=== PATIENT | male | born 1945 | race Caucasian/White ===

== ENCOUNTER 2019-01-26 18:56 | Emergency (ER) | payer MEDICARE, BC ==
[2019-01-26] MEDS ORDERED: Ondansetron 4 MG/2 ML SDV IVPUSH ONE (19:02)
[2019-01-26] MEDS ORDERED: Ondansetron 4 MG/2 ML SDV ONE (19:03)
[2019-01-26] MEDS ORDERED: Sodium Chloride 0.9% 1,000 ML IV ONE (19:05)
[2019-01-26] MEDS ORDERED: HYDROmorphone 1 MG/ML Syringe ONE (19:20)
[2019-01-26] MEDS ORDERED: fentaNYL 100 MCG/2 ML SDV ONE ×2 (19:22→19:43)
--- NOTE | 2019-01-26 19:40 | EDM.PDOC ---
ED HPI GENERAL MEDICAL PROBLEM - General Stated Complaint: MEDICAL VIA [facility] Time Seen by Provider: 01/26/19 19:00 Source of Information: Reports: Patient, EMS, Family History Limitations: Reports: No Limitations - History of Present Illness INITIAL COMMENTS - FREE TEXT/NARRATIVE: 73-year-old male was standing in line at a local movie theater when he developed a very significant abdominal pain causing him to become weak and nauseous. He tried to sit down but then collapsed, became very diaphoretic and pale and the pain persisted. EMS was called, found him to be hypotensive and pale but in a normal sinus rhythm. He has a history of an [place] in the past with stents. He is still having right abdominal pain, a headache, and nausea. He had a large emesis after coming in. Onset: Sudden Duration: Hour(s): (Symptoms started 1 hour ago) Location: Reports: Abdomen Associated Symptoms: Reports: Diaphoresis, Malaise, Nausea/Vomiting, Weakness, Other (Headache) - Related Data Allergies Allergy/AdvReac Type Severity Reaction Status Date / Time No Known Allergies Allergy Verified 01/26/19 20:15 ED ROS GENERAL - Review of Systems Review Of Systems: See Below Constitutional: Reports: Chills, Malaise. Denies: Fever HEENT: Reports: No Symptoms Respiratory: Denies: Shortness of Breath, Cough Cardiovascular: Denies: Chest Pain GI/Abdominal: Reports: Abdominal Pain, Nausea, Vomiting. Denies: Constipation, Diarrhea Skin: Reports: Pallor, Diaphoresis Psychiatric: Reports: No Symptoms ED EXAM, GENERAL - Physical Exam Exam: See Below Exam Limited By: No Limitations General Appearance: Alert, Moderate Distress Eye Exam: Bilateral Eye: Normal Inspection Respiratory/Chest: No Respiratory Distress, Lungs Clear Cardiovascular: Regular Rate, Rhythm GI/Abdominal: Other (Tenderness to palpation of the abdomen, especially on the right side) Extremities: Other (No edema, pale and significantly diaphoretic. He has a weak dorsalis pedis pulse on the left, none on the right) Neurological: Alert, Oriented, Other (Extremely weak) Skin Exam: Cool Course - Vital Signs Last Recorded V/S: Last Vital Signs Temp 95.8 F 01/26/19 20:18 Pulse 55 L 01/26/19 20:18 Resp 12 01/26/19 20:18 BP 87/63 L 09/19/19 20:18 Pulse Ox 94 L 01/26/19 20:18 - Orders/Labs/Meds Orders: Active Orders 24 hr Category Date Time Status PATIENT RETYPE [BBK] Stat Lab 01/26/19 19:20 Results RED BLOOD CELLS LP [BBK] Stat Lab 01/26/19 19:20 Results TYPE AND SCREEN [BBK] Stat Lab 01/26/19 19:20 Results Labs: Laboratory Tests 01/26/19 01/26/19 01/26/19 Range/Units 19:06 19:19 19:20 WBC 9.6 (4.5-11.0) K/uL RBC 4.63 (4.30-5.90) M/uL Hgb 14.1 (12.0-15.0) g/dL Hct 43.7 (40.0-54.0) % MCV 94 (80-98) fL MCH 31 (27-31) pg MCHC 32 (32-36) % Plt Count 323 (150-400) K/uL Neut % (Auto) 43 (36-66) % Lymph % (Auto) 40 (24-44) % [place] % (Auto) 12 H (2-6) % Eos % (Auto) 4 (2-4) % Baso % (Auto) 0 (0-1) % Sodium 142 (140-148) mmol/L Potassium 3.8 (3.6-5.2) mmol/L Chloride 106 (100-108) mmol/L Carbon Dioxide 24 (21-32) mmol/L Anion Gap 12.2 (5.0-14.0) mmol/L BUN 21 H (7-18) mg/dL Creatinine 1.5 H (0.8-1.3) mg/dL Est Cr Clr Drug Dosing 51.05 mL/min Estimated GFR (MDRD) 46 L (>60) Glucose 183 H (74-106) mg/dL Calcium 9.3 (8.5-10.1) mg/dL Total Bilirubin 0.3 (0.2-1.0) mg/dL AST 22 (15-37) U/L ALT 39 (12-78) U/L Alkaline Phosphatase 92 (46-116) U/L Total Protein 7.1 (6.4-8.2) g/dL Albumin 3.6 (3.4-5.0) g/dL Globulin 3.5 (2.3-3.5) g/dL Albumin/Globulin Ratio 1.0 L (1.2-2.2) Blood Type Cancelled Gel Antibody Screen Cancelled Crossmatch See Detail 01/26/19 Range/Units 19:20 WBC (4.5-11.0) K/uL RBC (4.30-5.90) M/uL Hgb (12.0-15.0) g/dL Hct (40.0-54.0) % MCV (80-98) fL MCH (27-31) pg MCHC (32-36) % Plt Count (150-400) K/uL Neut % (Auto) (36-66) % Lymph % (Auto) (24-44) % [place] % (Auto) (2-6) % Eos % (Auto) (2-4) % Baso % (Auto) (0-1) % Sodium (140-148) mmol/L Potassium (3.6-5.2) mmol/L Chloride (100-108) mmol/L Carbon Dioxide (21-32) mmol/L Anion Gap (5.0-14.0) mmol/L BUN (7-18) mg/dL Creatinine (0.8-1.3) mg/dL Est Cr Clr Drug Dosing mL/min Estimated GFR (MDRD) (>60) Glucose (74-106) mg/dL Calcium (8.5-10.1) mg/dL Total Bilirubin (0.2-1.0) mg/dL AST (15-37) U/L ALT (12-78) U/L Alkaline Phosphatase (46-116) U/L Total Protein (6.4-8.2) g/dL Albumin (3.4-5.0) g/dL Globulin (2.3-3.5) g/dL Albumin/Globulin Ratio (1.2-2.2) Blood Type O POSITIVE Gel Antibody Screen Negative Crossmatch See Detail Meds: Medications Discontinued Medications Generic Name Dose Route Start Last Admin Trade Name Vamshi PRN Reason Stop Dose Admin Fentanyl Confirm 01/26/19 19:22 01/26/19 21:23 Sublimaze Administered 01/26/19 19:23 Not Given Dose 100 mcg .ROUTE .STK-MED ONE Fentanyl Confirm 01/26/19 19:43 01/26/19 21:23 Sublimaze Administered 01/26/19 19:44 Not Given Dose 100 mcg .ROUTE .STK-MED ONE Fentanyl 75 mcg 01/26/19 21:24 01/26/19 19:22 Sublimaze IVPUSH 01/26/19 21:25 75 mcg ONETIME ONE Administration Fentanyl 75 mcg 01/26/19 21:25 01/26/19 19:42 Sublimaze IVPUSH 01/26/19 21:26 75 mcg ONETIME ONE Administration Hydromorphone HCl Confirm 01/26/19 19:20 01/26/19 21:23 Dilaudid Administered 01/26/19 19:21 Not Given Dose 1 mg .ROUTE .STK-MED ONE Sodium Chloride 1,000 mls @ 999 mls/hr 01/26/19 19:05 01/26/19 21:24 Normal Saline IV 01/26/19 20:05 999 mls/hr ONETIME ONE Administration Ondansetron HCl 4 mg 01/26/19 19:02 01/26/19 21:21 Zofran IVPUSH 01/26/19 19:03 4 mg ONETIME ONE Administration Ondansetron HCl Confirm 01/26/19 19:03 01/26/19 21:23 Zofran Administered 01/26/19 19:04 Not Given Dose 4 mg .ROUTE .STK-MED ONE - Re-Assessments/Exams Free Text/Narrative Re-Assessment/Exam: 01/26/19 19:39 2 IVs were started, patient was put on cardiac monitoring and remained in a sinus bradycardia. He had a very large emesis. 4 mg of IV Zofran and 75 g of fentanyl were given for pain. An ultrasound was performed over the abdomen and revealed a large aorta with a layered border indicating a possible dissection. Urgent transfer for presumptive dissecting aortic aneurysm likely into the right iliac area. CBC returned normal, 1 unit of O- blood however was hung to be run during transfer. Urgent consultation with [facility] was done and he was accepted by Dr. Inman, emergency room. Patient was given an additional 75 g of fentanyl for pain. I'll discharge his systolic blood pressure was 84, he was still oriented but still very pale and diaphoretic. His pain had improved. 01/26/19 21:50 Critical care was provided for 60 minutes Departure - Departure Time of Disposition: 23:08 Disposition: DC/Tfer to Other 70 Clinical Impression: Dissecting aortic aneurysm - Discharge Information Referrals: PCP,None [Primary Care Provider] - Forms: ED Department Discharge Care Plan Goals: Urgent transfer to [facility] for further evaluation and possible vascular surgery was arranged. Critical Care Note - Critical Care Note Total Time (mins): 60 - My Orders Last 24 Hours: My Active Orders 01/26/19 19:20 PATIENT RETYPE [BBK] Stat RED BLOOD CELLS LP [BBK] Stat TYPE AND SCREEN [BBK] Stat - Assessment/Plan Last 24 Hours: My Active Orders 01/26/19 19:20 PATIENT RETYPE [BBK] Stat RED BLOOD CELLS LP [BBK] Stat TYPE AND SCREEN [BBK] Stat
[2019-01-26] MEDS ORDERED: HYDROmorphone 1 MG/ML Syringe IM ONE (19:46)
[2019-01-26] MEDS ORDERED: fentaNYL 100 MCG/2 ML SDV IVPUSH ONE ×2 (21:24→21:25)
== END 2019-01-26 22:00 | disposition other institution (70) ==
LOC: JP.ED 18:56
DX: I71.02 Dissection of abdominal aorta (principal)
CPT/HCPCS: 36415; 36430; 80053; 85025; 86850; 86900; 86901; 86920; 86922; 96361; 96374; 96375; 99285; J2405; J3010; J7030; P9016; 99291

== ENCOUNTER 2019-02-01 10:06 | Emergency (ER) | payer MEDICARE, BC ==
[2019-02-01] MEDS ORDERED: LORazepam 1 MG Tab PO ONE (11:12)
--- NOTE | 2019-02-01 12:00 | EDM.PDOC ---
ED HPI GENERAL MEDICAL PROBLEM - General Chief Complaint: Cardiovascular Problem Stated Complaint: headache high blood pressure Time Seen by Provider: 02/01/19 11:15 Source of Information: Reports: Patient, Family History Limitations: Reports: No Limitations - History of Present Illness INITIAL COMMENTS - FREE TEXT/NARRATIVE: 73 yo hx of HTN, recent ruptured AAA repaired (just discharged from [facility] yesterday) presents concerns of hypertension. Has history of this. Just restarted all of his PO meds yesterday prior to discharge. Has some non-bloody diarrhea overnight. Was up to the toilet frequently and checked BP during this time, multiple readings of systolics mid 100s but some in 170s and up to 190. Has become quite anxious about this. Took an extra lisinopril. No PHILLPIS. No CP. Has been having productive cough since leaving hospital, but no fevers. No dysuria. No hx of DVT, no LE swelling or pain. Headache Pain Score (Numeric/FACES): 7 - Related Data Allergies Allergy/AdvReac Type Severity Reaction Status Date / Time No Known Allergies Allergy Verified 02/01/19 10:16 Home Meds: Home Meds Acetaminophen 650 mg PO Q4H PRN 02/01/19 [History] Amoxicillin/Potassium Clav [Augmentin 875-125 Tablet] 1 tab PO BID #14 tablet [Rx] Ascorbic Acid 500 mg PO DAILY 02/01/19 [History] Aspirin 81 mg PO DAILY 02/01/19 [History] Cyclobenzaprine [Flexeril] 10 mg PO TID PRN 02/01/19 [History] Ferrous Sulfate 325 mg PO DAILY 02/01/19 [History] Gabapentin [Neurontin] 300 - 600 mg PO BEDTIME 02/01/19 [History] Lisinopril 20 mg PO BID 02/01/19 [History] Metoprolol Succinate [Toprol XL] 25 mg PO DAILY 02/01/19 [History] Montelukast [Singulair] 10 mg PO BEDTIME 02/01/19 [History] Multivitamin [Multi-Vitamin Daily] 1 each PO DAILY 02/01/19 [History] Rosuvastatin [Crestor] 5 mg PO BEDTIME 02/01/19 [History] Sennosides/Docusate Sodium [Senna-Docusate Sodium Tablet] 2 tab PO BID PRN 02/01 [History] amLODIPine [Norvasc] 5 mg PO DAILY 02/01/19 [History] Past Medical History HEENT History: Reports: Other (See Below) Other HEENT History: unable to obtain due to pt status Cardiovascular History: Reports: Aneurysm, [place] Respiratory History: Reports: Other (See Below) Other Respiratory History: unable to obtain due to pt status Gastrointestinal History: Reports: Other (See Below) Other Gastrointestinal History: unable to obtain due to pt status Genitourinary History: Reports: Other (See Below) Other Genitourinary History: unable to obtain due to pt status Musculoskeletal History: Reports: Back Pain, Chronic Other Musculoskeletal History: unable to obtain due to pt status Neurological History: Reports: Other (See Below) Other Neuro History: unable to obtain due to pt status Psychiatric History: Reports: Other (See Below) Other Psychiatric History: unable to obtain due to pt status Endocrine/Metabolic History: Reports: Other (See Below) Other Endocrine/Metabolic History: unable to obtain due to pt status Hematologic History: Reports: Blood Transfusion(s) Other Hematologic History: unable to obtain due to pt status Immunologic History: Reports: Other (See Below) Other Immunologic History: unable to obtain due to pt status Oncologic (Cancer) History: Reports: Basal Cell Carcinoma, Prostate Other Oncologic History: unable to obtain due to pt status Dermatologic History: Reports: Other (See Below) Other Dermatologic History: unable to obtain due to pt status - Infectious Disease History Infectious Disease History: Reports: Other (See Below) Other Infectious Disease History: unable to obtain due to pt status - Past Surgical History Cardiovascular Surgical History: Reports: AAA Repair, Coronary Artery Stent Male Surgical History: Reports: Prostatectomy Dermatological Surgical History: Reports: Skin Biopsy Social & Family History - Tobacco Use Smoking Status *Q: Never Smoker - Caffeine Use Caffeine Use: Reports: None - Recreational Drug Use Recreational Drug Use: No ED ROS GENERAL - Review of Systems Review Of Systems: See Below Constitutional: Reports: No Symptoms HEENT: Reports: No Symptoms Respiratory: Reports: Cough, Sputum Cardiovascular: Reports: Blood Pressure Problem. Denies: Chest Pain Endocrine: Reports: No Symptoms GI/Abdominal: Reports: Diarrhea : Denies: Dysuria, Flank Pain, Frequency Musculoskeletal: Reports: No Symptoms Skin: Reports: No Symptoms Neurological: Reports: No Symptoms Psychiatric: Reports: Anxiety Hematologic/Lymphatic: Reports: No Symptoms Immunologic: Reports: No Symptoms ED EXAM, GENERAL - Physical Exam Exam: See Below Exam Limited By: No Limitations General Appearance: Alert, No Apparent Distress Nose: Normal Inspection Throat/Mouth: Normal Inspection Head: Atraumatic, Normocephalic Neck: Normal Inspection Respiratory/Chest: Lungs Clear, Normal Breath Sounds Cardiovascular: Regular Rate, Rhythm GI/Abdominal: Soft, Non-Tender, Distended (softly distended) Extremities: Normal Inspection Neurological: Alert, Oriented, CN II-XII Intact Psychiatric: Anxious Skin Exam: Warm, Dry Course - Vital Signs Last Recorded V/S: Last Vital Signs Temp 38.2 C H 02/01/19 10:18 Pulse 106 H 02/01/19 10:18 Resp 25 H 02/01/19 10:56 BP 160/87 H 02/01/19 10:56 Pulse Ox 95 02/01/19 10:56 - Orders/Labs/Meds Meds: Medications Discontinued Medications Generic Name Dose Route Start Last Admin Trade Name Freq PRN Reason Stop Dose Admin Lorazepam 1 mg 02/01/19 11:12 02/01/19 11:17 Ativan PO 02/01/19 11:13 1 mg ONETIME ONE Administration - Re-Assessments/Exams Free Text/Narrative Re-Assessment/Exam: 73 yo who presents concerns of asymptomatic hypertension in setting of recent ruptured AAA repair. Very anxious. Had underlying hypertension. Just restarted PO meds. Only change we will plan to make is to increase amlodipine 5->10 mg He has no PCP currently so placing clinic referral for hopeful follow-up end of this week. He was noted to be febrile in the ED Having respiratory symptoms. Checking CXR, low threshold for antibiotics having recently been in ICU on the vent. Remainder of hx/exam without focal source of infection. No evidence of DVT 02/01/19 12:10 Free Text/Narrative Re-Assessment/Exam: CXR read as right pleural effusion, atelectasis Starting 7 days of augmentin Other safe for d/c, return precautions discussed 02/01/19 12:30 Departure - Departure Time of Disposition: 12:31 Disposition: Home, Self-Care 01 Clinical Impression: Hypertension Qualifiers: Hypertension type: unspecified Qualified Code(s): I10 - Essential (primary) hypertension Fever Qualifiers: Fever type: unspecified Qualified Code(s): R50.9 - Fever, unspecified Prescriptions: Amoxicillin/Potassium Clav [Augmentin 875-125 Tablet] 1 tab PO BID #14 tablet Instructions: Managing Your Hypertension, Fever, Adult Referrals: PCP,None [Primary Care Provider] - Forms: ED Department Discharge Additional Instructions: Please follow up in the [facility] Return to the ER for worsening symptoms as discussed.
--- NOTE | 2019-02-01 12:10 | CRLCR ---
INDICATION: Cough and fever, recently intubated and on ventilator TECHNIQUE: Chest 2 views. COMPARISON: None FINDINGS: Cardiac size within normal limits. Normal superior mediastinum. Elevation of the right hemidiaphragm. Small right pleural effusion. Linear atelectasis in the left lower lobe. No focal consolidation. Vascular stent seen in the mid abdomen. Mild multilevel degenerative disc disease. IMPRESSION: No focal consolidation. Small right pleural effusion. Linear atelectasis in the left lower lobe. Dictated by Melissa Pina MD @ Feb 01 2019 12:09PM Signed by Dr. Melissa Pina @ Feb 01 2019 12:09PM
== END 2019-02-01 13:01 | disposition home or self-care (01) ==
LOC: JP.ED 10:06
DX: I10 Essential (primary) hypertension (principal); R50.9 Fever, unspecified; I25.2 Old myocardial infarction; Z79.82 Long term (current) use of aspirin; Z79.899 Other long term (current) drug therapy
CPT/HCPCS: 71046; 99283; 99284; A9270